=== PATIENT | male | born 1970 | race Caucasian/White ===

== ENCOUNTER 2023-02-19 07:35 | Day surgery (SDC) | payer BC, SELFPAY ==
[2023-02-19] VITALS (11 sets, daily range): BP systolic 114–135; BP diastolic 71–85; PULSE 50–79; RESP 14–19; TEMP 36.4–36.8; O2SAT 94–97; BMI 25.7
[2023-02-19] MEDS: OXYMETAZOLINE 0.05% NASAL SPRAY 2 SPRAY NOSTRIL-B (08:07)
[2023-02-19] MEDS: SODIUM CHLORIDE 0.9 % (FLUSH) 10 ML SYRINGE IVF (08:18)
[2023-02-19] MEDS: LACTATED RINGERS 1000 ML 1,000 ML 100 ML IV (08:19)
[2023-02-19] MEDS: BUPIVACAINE 0.5 %/EPI 1:200K 30 ML INJECTION (09:13)
[2023-02-19] MEDS: COCAINE HCL 4 % 4 ML SOLUTION NOSTRIL-B (09:13)
[2023-02-19] MEDS: MUPIROCIN 1 GM PACKET 1 APPLIC TOPICAL (09:20)
--- NOTE | 2023-02-19 09:42 | W.ANESCHARGE ---
Anesthesia Charges Start Date/Time Anesthesia Start Date: 02/19/23 Anesthesia Start Time: 08:58 Stop Date/Time Anesthesia Stop Date: 02/19/23 Anesthesia Stop Time: 09:38
--- NOTE | 2023-02-19 09:53 | W.ANESCHARGE ---
Anesthesia Charges Start Date/Time Anesthesia Start Date: 02/19/23 Anesthesia Start Time: 08:58 Stop Date/Time Anesthesia Stop Date: 02/19/23 Anesthesia Stop Time: 09:38
--- NOTE | 2023-02-19 12:08 | P.ENTPROC_ITS ---
Procedure Note Date of procedure: 02/19/23 Procedure: Preoperative diagnosis nasal obstruction left deviated septum Postoperative diagnosis same Procedure revision septoplasty from a surgery done elsewhere Under general endotracheal anesthesia patient was prepped and draped in usual f ashion. The nose was injected and decongested. A right hemitransfixion incision was made. A left anterior tunnel was created there was significant scarring but this was done with sharp dissection mainly without difficulty and there were no mucosal tears. There was redundant cartilage anteriorly this was removed moved particularly inferiorly leaving a normal amount of cartilage for dorsal and tip support. The superior to alleviate the obstruction. The hemitransfixion was closed with 2 4-0 chromic sutures small silastic stents were secured with 3-0 nylon and a Merocel pack was placed on each side above the stents. The patient opted was taken recovery in satisfactory condition blood loss less than 5 mL Surgeon: Juan Carlos Sarabia MD
== END 2023-02-19 10:59 | disposition home or self-care (01) ==
LOC: OR 07:37
PROVIDERS: PCP Family Medicine; Visit Provider Otolaryngology
PROC: (CPT 30520; principal; 2023-02-19 08:45)
DX: J34.2 Deviated nasal septum (principal)
CPT/HCPCS: 30520; 160; A9270; J0330; J1100; J2250; J2405; J2704; J3010; J3490; J7120